=== PATIENT | male | born 1965 | race African-American/Black ===

== ENCOUNTER 2017-02-20 10:40 | Emergency (ER) | payer OTHER ==
[~2017-02-20] VITALS: Ht 177.8 cm; Wt 80.0 kg
[2017-02-20] MEDS ORDERED: SODIUM CHLORIDE 0.9% 1,000 ML IV ONE ×2 (10:44→14:01)
[2017-02-20] MEDS ORDERED: CEFTRIAXONE 1 G PREMIX 50 ML IV ONE (10:45)
[2017-02-20 11:13] LABS: MEAN CORPUSCULAR HEMOGLOBIN 16.4 pg (28.0-32.0); MEAN CORPUSCULAR VOLUME 60.3 fL (80.0-94.0); MEAN PLATELET VOLUME 8.5 fl (7.4-10.4); PLATELET 150 x1000/uL (130-400); RED BLOOD CELL COUNT 3.29 mill/uL (4.7-6.1); RED CELL DISTRIBUTION WIDTH 23.7 % (11.6-14.6)
[2017-02-20 11:16] LABS: HEMATOCRIT. 19.9 % (42.0-52.0); HEMOGLOBIN. 5.4 g/dL (14.0-18.0)
[2017-02-20 11:17] LABS: INR 1.4; PROTHROMBIN TIME 15.1 sec (9.4-11.6)
[2017-02-20 11:25] LABS: CARBON DIOXIDE 19 mEq/L (21-32); CHLORIDE 103 mEq/L (98-107)
[2017-02-20 11:52] LABS: PLATELET ESTIMATE NORMAL
[2017-02-20] MEDS ORDERED: MORPHINE SULFATE 4 MG/ML CPJ (NOT FOR IM USE) IV STA (14:01)
[2017-02-20] MEDS ORDERED: ONDANSETRON HCL 4MG/2ML VIAL IV STA (14:01)
[2017-02-20 23:07] VITALS: BP 117/56
== END 2017-02-20 23:44 ==
LOC: ER 10:41
DX: K12.2 Cellulitis and abscess of mouth (principal); K92.2 Gastrointestinal hemorrhage, unspecified; D64.9 Anemia, unspecified; F17.200 Nicotine dependence, unspecified, uncomplicated; F15.10 Other stimulant abuse, uncomplicated
CPT/HCPCS: 36415; 36430; 70490; 80053; 85025; 85610; 86850; 86900; 86901; 86920; 96361; 96365; 96375; 99285; J0696; J2270; J2405; J7030; J7040; P9016; Z7610